=== PATIENT | male | born 1950 ===

== ENCOUNTER 2017-06-23 09:35 | Inpatient (IN) ==
[2017-06-23] MEDS ORDERED: HYOSCYAMINE 0.125 MG TABLET PO ONE (11:29)
[2017-06-23 12:25] LABS: Basophils # 0.1 10*3/uL (0.0-0.2); Basophils % 0.5 % (0.0-0.8); Eosinophils # 0.1 10*3/uL (0.0-0.87); Eosinophils % 0.8 % (0.00-10.9); Hematocrit 35.3 VOL% (42.0-52.0); Hemoglobin 12.3 GM/DL (14.0-18.0); Immature Granulocytes % 0.9 %; Lymphocytes # 1.2 10*3/uL (1.4-4.0); Lymphocytes % 10.7 % (21.2-54.2); Mean Corpuscular HGB Conc 34.8 GM/DL (32-36); Mean Corpuscular Hemoglobin 33 PG (27-34); Mean Corpuscular Volume 94.9 FL (87-102); Mean Platelet Volume 10.7 FL (9.6-12.0); Monocytes # 1.3 10*3/uL (0.11-0.8); Monocytes % 11.7 % (1.7-12.7); Neutrophils # 8.4 10*3/uL (1.4-7.4); Neutrophils % 75.4 % (38.7-73.9); Platelet Count 195 T/CUMM (130-400); Red Blood Count 3.72 MC/CUMM (3.8-5.5); Red Cell Distribution Width 12.8 % (9.3-17.3); White Blood Count 11.2 T/CUMM (4-12)
[2017-06-23] MEDS ORDERED: ONDANSETRON 4 MG/2 ML VIAL ONE (12:34)
[2017-06-23] MEDS ORDERED: MORPHINE 2 MG/1 ML SYRINGE ONE (12:35)
[2017-06-23 12:42] LABS: Albumin 3.5 G/DL (3.4-5.0); Bilirubin,Total 1.3 MG/DL (0.2-1.0); Osmolality,Calculated 273.5 MOS/KG (273-304); Potassium 4.3 MMOL/L (3.5-5.1); Total Protein 6.7 G/DL (6.4-8.3)
[2017-06-23] MEDS ORDERED: ONDANSETRON 4 MG/2 ML VIAL IV STA (12:47)
[2017-06-23] MEDS ORDERED: MORPHINE 2 MG/1 ML SYRINGE IV STA (12:47)
[2017-06-23] MEDS ORDERED: ONDANSETRON 4 MG/2 ML VIAL IV PRN (14:19)
[2017-06-23] MEDS ORDERED: GLUCAGON 1 MG VIAL IM PRN (14:19)
[2017-06-23] MEDS ORDERED: MORPHINE 2 MG/1 ML SYRINGE IV PRN (14:19)
[2017-06-23] MEDS ORDERED: DEXTROSE 50% 25 GM/50 ML VIAL IV PRN (14:19)
[2017-06-23 16:48] LABS: INR 1.1; PT Patient Result 11.1 SECS; Partial Thromboplastin Time 31.8 SECS (0-40)
[2017-06-23 16:55] LABS: Risk Ratio 2.22; VLDL CHOLESTEROL 16.6 MG/DL
[2017-06-23 17:03] LABS: Prostate Specific Antigen Diag 0.2 NG/ML (0-4)
[2017-06-23 17:58] LABS: Total Protein 6.7 G/DL (6.4-8.3)
[2017-06-23] MEDS: SODIUM CHLORIDE 0.9% 1,000 ML IV SCH (18:00)
[2017-06-23] MEDS: INSULIN REGULAR 100 UNIT/ML SUBCUT SCH ×2 (18:39→22:27)
[2017-06-23] MEDS: ZIPRASIDONE 20 MG CAPSULE PO SCH (22:28)
[2017-06-23] MEDS: BENZTROPINE 1 MG TABLET PO SCH (22:29)
[2017-06-23] MEDS: OLOPATADINE 0.1% OPH SOLN 5 ML BOTTLE BOTH EYES SCH (22:29)
[2017-06-23] MEDS: traZODone 50 MG TABLET PO SCH (22:30)
[2017-06-24] MEDS: SODIUM CHLORIDE 0.9% 1,000 ML IV SCH (03:26)
[2017-06-24 09:25] LABS: Immunoglobulin A (Chem) 220 MG/DL (70-400); Immunoglobulin G (Chem) 1190 MG/DL (700-1600); Immunoglobulin M (Chem) 42 MG/DL (40-230); Total Protein (Chem) 6.7 G/DL (6.4-8.3)
[2017-06-24] MEDS: INSULIN REGULAR 100 UNIT/ML SUBCUT SCH ×4 (09:46→20:33)
[2017-06-24] MEDS: OLOPATADINE 0.1% OPH SOLN 5 ML BOTTLE BOTH EYES SCH ×2 (09:47→20:43)
[2017-06-24] MEDS: ZIPRASIDONE 20 MG CAPSULE PO SCH ×2 (09:47→16:25)
[2017-06-24 10:56] LABS: Albumin (SPE) 4.2 G/DL (3.2-5.3); Albumin (SPE) Rel % 62.1 %; Alpha 1 (SPE) 0.2 G/DL (0.1-0.4)
[2017-06-24 10:57] LABS: Alpha 1 (SPE) Rel % 2.9 %; Alpha 2 (SPE) 0.6 G/DL (0.4-1.0); Alpha 2 (SPE) Rel % 9.6 %; Beta (SPE) 0.6 G/DL (0.5-1.1); Beta (SPE) Rel % 9.7 %; Gamma (SPE) 1.1 G/DL (0.7-1.7); Gamma (SPE) Rel % 15.7 %
[2017-06-24] MEDS ORDERED: ROPIVACAINE 0.5% 30 ML VIAL ONE (10:58)
[2017-06-24] MEDS ORDERED: ceFAZolin 2,000 MG in PREMIX 1 EACH IV ONE (11:00)
[2017-06-24 12:17] LABS: Immuno Free Light Chain Kappa 3.03 MG/DL (0.33-1.94); Immuno Free Light Chain Lambda 2.36 MG/DL (0.57-2.63); Immuno Free Light Chain Ratio 1.28 MG/DL (0.26-1.65)
[2017-06-24] MEDS ORDERED: MORPHINE 2 MG/1 ML SYRINGE IV PRN ×2 (12:42→12:57)
[2017-06-24] MEDS: ceFAZolin 1,000 MG in SYRINGE 1 EACH IV SCH ×2 (13:00→20:34)
[2017-06-24] MEDS ORDERED: SUGAMMADEX 200 MG/2 ML VIAL IV ONE (13:14)
[2017-06-24] MEDS ORDERED: PROPOFOL 200 MG/20 ML VIAL IV ONE (14:15)
[2017-06-24] MEDS ORDERED: fentaNYL 100 MCG/2 ML VIAL ONE (14:16)
[2017-06-24] MEDS ORDERED: SEVOFLURANE 1 UNIT/15 MINUTE INH ONE (14:16)
[2017-06-24] MEDS ORDERED: NALOXONE 0.4 MG/ML VIAL ONE (14:16)
[2017-06-24] MEDS ORDERED: MIDAZOLAM 2 MG/2 ML VIAL ONE (14:16)
[2017-06-24] MEDS ORDERED: ONDANSETRON 4 MG/2 ML VIAL ONE (14:16)
[2017-06-24] MEDS ORDERED: SUCCINYLCHOLINE 200 MG/10 ML VIAL ONE (14:17)
[2017-06-24] MEDS ORDERED: ROCURONIUM 100 MG/10 ML VIAL IV ONE (14:17)
[2017-06-24] MEDS ORDERED: FLUMAZENIL 0.5 MG/5 ML VIAL IV ONE (14:17)
[2017-06-24] MEDS ORDERED: ALBUTEROL 2.5 MG/3 ML NEB RESP TX ONE (14:17)
[2017-06-24] MEDS ORDERED: PHENYLEPHRINE 10 MG/1 ML VIAL IV ONE (14:17)
[2017-06-24] MEDS ORDERED: ALBUTEROL INHALER 8 GM INH ONE (14:17)
[2017-06-24] MEDS ORDERED: ACETAMINOPHEN 1,000 MG/100 ML VIAL IV ONE (14:17)
[2017-06-24] MEDS ORDERED: LACTATED RINGERS 1,000 ML IV ONE (14:17)
[2017-06-24 18:17] LABS: Apearance,Urine Slightly Hazy (Clear); Bilirubin,Urine Negative (Negative); Blood, Urine Negative (Negative); Glucose,Urine (UA) 50 mg/dL (Negative); Ketones,Urine Negative (Negative); Nitrite,Urine Negative (Negative); Protein,Urine 30 MG/DL; RBC,Urine <1 /HPF (0-4); Squamous Epithelial Cell,Urine Occasional /HPF (0-10); Urine Color Yellow (Yellow); Urine Urobilinogen < 2.0 EU/DL (0.2-1.0); WBC,Urine 2 /HPF (0-6)
[2017-06-24] MEDS: BENZTROPINE 1 MG TABLET PO SCH (20:34)
[2017-06-24] MEDS: traZODone 50 MG TABLET PO SCH (20:34)
[2017-06-25] MEDS: ceFAZolin 1,000 MG in SYRINGE 1 EACH IV SCH (05:15)
[2017-06-25] MEDS: SODIUM CHLORIDE 0.9% 1,000 ML IV SCH ×3 (05:33→21:32)
[2017-06-25 06:00] LABS: Basophils # 0.1 10*3/uL (0.0-0.2); Basophils % 0.4 % (0.0-0.8); Eosinophils % 0.2 % (0.00-10.9); Hematocrit 35.5 VOL% (42.0-52.0); Hemoglobin 11.8 GM/DL (14.0-18.0); Immature Granulocytes % 0.9 %; Immature Granulocytes Absolute 0.11 #; Lymphocytes # 0.9 10*3/uL (1.4-4.0); Lymphocytes % 7.4 % (21.2-54.2); Mean Corpuscular HGB Conc 33.2 GM/DL (32-36); Mean Corpuscular Hemoglobin 33 PG (27-34); Mean Corpuscular Volume 99.2 FL (87-102); Monocytes # 1.6 10*3/uL (0.11-0.8); Monocytes % 12.3 % (1.7-12.7); Neutrophils % 78.8 % (38.7-73.9); Platelet Count 175 T/CUMM (130-400); Red Blood Count 3.58 MC/CUMM (3.8-5.5); Red Cell Distribution Width 13.1 % (9.3-17.3); White Blood Count 12.7 T/CUMM (4-12)
[2017-06-25 06:30] LABS: Calcium 8.2 MG/DL (8.5-10.1); Osmolality,Calculated 277.1 MOS/KG (273-304); Potassium 4.4 MMOL/L (3.5-5.1)
[2017-06-25] MEDS: INSULIN REGULAR 100 UNIT/ML SUBCUT SCH ×4 (08:41→20:59)
[2017-06-25] MEDS: OLOPATADINE 0.1% OPH SOLN 5 ML BOTTLE BOTH EYES SCH ×2 (08:42→20:59)
[2017-06-25] MEDS: ZIPRASIDONE 20 MG CAPSULE PO SCH ×2 (08:44→16:36)
[2017-06-25] MEDS: amLODIPine 10 MG TABLET PO SCH (16:36)
[2017-06-25] MEDS: traZODone 50 MG TABLET PO SCH (20:58)
[2017-06-25] MEDS: BENZTROPINE 1 MG TABLET PO SCH (20:59)
[2017-06-25] MEDS ORDERED: INSULIN GLARGINE 100 UNIT/ML SUBCUT SCH (21:00)
[2017-06-26 05:32] LABS: Basophils # 0.1 10*3/uL (0.0-0.2); Basophils % 0.4 % (0.0-0.8); Eosinophils # 0.1 10*3/uL (0.0-0.87); Hematocrit 34.2 VOL% (42.0-52.0); Hemoglobin 11.8 GM/DL (14.0-18.0); Immature Granulocytes % 1.1 %; Immature Granulocytes Absolute 0.13 #; Lymphocytes # 1.1 10*3/uL (1.4-4.0); Lymphocytes % 9.3 % (21.2-54.2); Mean Corpuscular HGB Conc 34.5 GM/DL (32-36); Mean Corpuscular Hemoglobin 34 PG (27-34); Mean Corpuscular Volume 97.2 FL (87-102); Mean Platelet Volume 11.2 FL (9.6-12.0); Monocytes # 1.4 10*3/uL (0.11-0.8); Monocytes % 11.3 % (1.7-12.7); NRBC # 0.02 10*3/uL; Neutrophils # 9.2 10*3/uL (1.4-7.4); Neutrophils % 76.9 % (38.7-73.9); Platelet Count 181 T/CUMM (130-400); Red Blood Count 3.52 MC/CUMM (3.8-5.5); Red Cell Distribution Width 13.2 % (9.3-17.3)
[2017-06-26 05:56] LABS: Calcium 7.9 MG/DL (8.5-10.1); Osmolality,Calculated 280.1 MOS/KG (273-304)
[2017-06-26] MEDS: amLODIPine 10 MG TABLET PO SCH (09:32)
[2017-06-26] MEDS: INSULIN REGULAR 100 UNIT/ML SUBCUT SCH ×2 (09:33→12:04)
[2017-06-26] MEDS: ZIPRASIDONE 20 MG CAPSULE PO SCH (09:33)
[2017-06-26] MEDS: OLOPATADINE 0.1% OPH SOLN 5 ML BOTTLE BOTH EYES SCH (09:35)
[2017-06-26] MEDS: SODIUM CHLORIDE 0.9% 1,000 ML IV SCH (12:06)
[2017-06-26 16:38] VITALS: BP 140/85
== END 2017-06-26 16:25 | DRG 493 ==
LOC: EDBD → EDUNIT# → N.ED 09:35 → SUATTDRO 12:26 → N.EDINP 12:26 → N.3E 13:56
PROVIDERS: ADMIT Internal Medicine; ATTEND Internal Medicine